=== PATIENT | female | born 1945 | race Caucasian/White ===

== ENCOUNTER 2017-06-21 13:11 | Emergency (ER) | payer MEDICAID, OTHER ==
[~2017-06-21] VITALS: Ht 165.1 cm; Wt 81.6 kg
[~2017-06-21 13:11] MED LIST: LACT-209 GT; LACT10SO GT; RANI150T12 GT
--- NOTE | 2017-06-21 13:15 | NUR ---
[facility] FOR GT REPLACEMENT. RR IS EVEN AND UNLABORED WITH NAD NOTED. SKIN IS WARM AND DRY. AWAITING MD FOR EVAL.
[2017-06-21] MEDS ORDERED: DIATR MEGLU/DIATRIZOATE SODIUM 30 ML BOTTLE (GASTROGRAPHIN) ONE (13:39)
--- NOTE | 2017-06-21 14:00 | NUR ---
DONELL AT BS.
[2017-06-21 16:50] VITALS: BP 106/51
--- NOTE | 2017-06-21 16:52 | NUR ---
Patient discharged to home VIA [facility] in stable condition. Written and verbal after care instructions given. Patient verbalizes understanding of instruction.
== END 2017-06-21 16:53 ==
LOC: ER 13:16
DX: K94.03 Colostomy malfunction (principal); E11.9 Type 2 diabetes mellitus without complications; F03.90 Unspecified dementia, unspecified severity, without behavioral disturbance, psychotic disturbance, mood disturbance, and anxiety; I10 Essential (primary) hypertension; K21.9 Gastro-esophageal reflux disease without esophagitis; K74.60 Unspecified cirrhosis of liver; F17.200 Nicotine dependence, unspecified, uncomplicated
CPT/HCPCS: 74018; A4606; Q9963; Z7610

== ENCOUNTER 2017-07-23 18:39 | Emergency (ER) | payer OTHER ==
[~2017-07-23] VITALS: Ht 165.1 cm; Wt 68.0 kg
[~2017-07-23 18:39] MED LIST changes: -RANI150T12 GT; +RANI150T43 GT
[2017-07-23] MEDS ORDERED: DIATR MEGLU/DIATRIZOATE SODIUM 30 ML BOTTLE (GASTROGRAPHIN) ONE (19:39)
[2017-07-23 20:57] VITALS: BP 141/74
[2017-07-24] MEDS ORDERED: RANI150T43 GT (07:39)
[2017-07-24] MEDS ORDERED: AMIN30LI4 GT (07:39)
[2017-07-24] MEDS ORDERED: LACT-209 GT (07:39)
[2017-07-24] MEDS ORDERED: CHOL100044 GT (07:39)
[2017-07-27] MEDS ORDERED: CEPH-569 PO (09:56)
== END 2017-07-23 20:57 ==
LOC: ER 18:41
DX: K94.23 Gastrostomy malfunction (principal); I10 Essential (primary) hypertension; K21.9 Gastro-esophageal reflux disease without esophagitis; E11.9 Type 2 diabetes mellitus without complications; F03.90 Unspecified dementia, unspecified severity, without behavioral disturbance, psychotic disturbance, mood disturbance, and anxiety; K74.60 Unspecified cirrhosis of liver; F17.200 Nicotine dependence, unspecified, uncomplicated; Z86.73 Personal history of transient ischemic attack (TIA), and cerebral infarction without residual deficits
CPT/HCPCS: 74018; A4606; Q9963; Z7610

== ENCOUNTER 2017-07-24 07:00 | Inpatient (IN) | payer OTHER ==
[~2017-07-24] VITALS: Ht 160 cm; Wt 68.5 kg
--- NOTE | 2017-07-24 07:00 | NUR ---
TOD FROM [facility] FOR G TUBE REPLACEMENT, S/P PATIENT PULLING OUT GTUBE AT APPROX. 0430. CLEMONS IN PLACE. A/OX 1, BREATHING EVEN AND UNLABORED. NO SOB, NAD, VITALS STABLE. SAFETY AND COMFORT MEASURES IN PLACE. AWAITING MD ORDERS.
[2017-07-24] MEDS ORDERED: WATER FOR INJECTION,STERILE 0 ML ONE (07:06)
--- NOTE | 2017-07-24 07:10 | NUR ---
DR. LADD ATTEMPTED TO REPLACE G-TUBE WITH NO SUCCESS, STOMA HAS CLOSED UP. WILL F/U WITH GI.
[2017-07-24] MEDS ORDERED: IV NS 0.9% 1,000 ML IV ONE (07:30)
[2017-07-24] MEDS ORDERED: CHOL100044 GT (07:39)
[2017-07-24] MEDS ORDERED: RANI150T43 GT (07:39)
[2017-07-24] MEDS ORDERED: AMIN30LI4 GT (07:39)
[2017-07-24] MEDS ORDERED: LACT-209 GT (07:39)
[2017-07-24 07:42] LABS: BASOPHILS % (AUTO) 0.3 % (0.0-2.0); EOSINOPHILS % (AUTO) 3.2 % (0.0-6.0); HEMATOCRIT 45 % (33-45); HEMOGLOBIN 15.8 g/dL (11.5-14.8); LYMPHOCYTES # (AUTO) 1.5 /CMM (0.8-4.8); LYMPHOCYTES % (AUTO) 29.4 % (20.0-44.0); MEAN CORPUSCULAR HGB CONC 35 g/dl (31.0-36.0); MEAN CORPUSCULAR VOLUME 97 fL (82-100); MONOCYTES # (AUTO) 0.4 /CMM (0.1-1.30); MONOCYTES % (AUTO) 7.2 % (2.0-12.0); NEUTROPHILS % (AUTO) 59.9 % (43.0-81.0); PLATELET COUNT (AUTO) 119 /CMM (150-450); RDW COEFFICIENT OF VARIATION 14.1 (11.5-15.0); RED BLOOD CELL COUNT(AUTO) 4.69 MIL/uL (4.0-5.2); WHITE BLOOD COUNT (AUTO) 5.1 K/uL (4.3-11.0)
[2017-07-24 07:58] LABS: INR 1.06 (0.87-1.13)
[2017-07-24 08:06] LABS: CARBON DIOXIDE 28 mmol/L (21-32); CHLORIDE 111 mmol/L (98-107); CREATININE 0.8 mg/dL (0.6-1.3); GLUCOSE 111 mg/dL (74-106); POTASSIUM 4.5 mmol/L (3.5-5.1); SODIUM SERUM 147 mmol/L (136-145); UREA NITROGEN, BLOOD 32 mg/dL (7-18)
--- NOTE | 2017-07-24 08:23 | NUR ---
report given to aram matias for mason upon admission.
[2017-07-24] MEDS ORDERED: Z GUARD REMEDY 2 OZ OINT TP PRN (08:30)
[2017-07-24] MEDS ORDERED: MAG HYDROX/AL HYDROX/SIMETH 30 ML UDC PO PRN (08:30)
[2017-07-24] MEDS ORDERED: MAGNESIUM HYDROXIDE 30 ML UDC PO PRN (08:30)
[2017-07-24] MEDS ORDERED: ONDANSETRON HCL/PF 4 MG/2 ML VIAL IVP PRN (08:30)
[2017-07-24] MEDS ORDERED: ACETAMINOPHEN 325 MG TABLET PO PRN (08:30)
[2017-07-24] MEDS ORDERED: HYDROCODONE/APAP 5/325MG 1 EACH TABLET PO PRN (08:30)
[2017-07-24 09:00] VITALS: BP 128/75
[2017-07-24] MEDS: PANTOPRAZOLE 40 MG VIAL IV SCH (09:00)
--- NOTE | 2017-07-24 09:30 | NUR ---
COMPUTER OPERATIONS TECHNICIAN NOTE RECEIVED PT. PT IS STABLE AND RESTING IN BED. NO S/S OF SOB OR RESP DISTRESS. PT IS NON VERBAL, HOWEVER IS ABLE TO FOLLOW SIMPLE COMMANDS. BED BOUND, PT DENIES PAIN AT THIS TIME. SKIN ASSESSMENT PHOTOS TAKEN AND PLACED IN CHART. SAFETY MEASURES IN PLACE, CALL LIGHT WITHIN REACH. WILL CONTINUE TO MONITOR.
[2017-07-24] MEDS ORDERED: JEVITY 1.2 CAL 1,000 ML BOTTLE GT SCH (10:00)
[2017-07-24] MEDS: LACTULOSE 10 G/15 ML UDC (PYXIS) GT SCH (10:30)
[2017-07-24] MEDS: CHOLECALCIFEROL 1,000 UNIT TABLET (VIT D3) GT SCH ×2 (13:00→17:00)
[2017-07-24 15:21] LABS: ALANINE AMINOTRANSFERASE 46 U/L (12-78); ALBUMIN 2.9 g/dL (3.4-5.0); ALKALINE PHOSPHATASE 122 U/L (46-116); ASPARTATE AMINOTRANSFERASE 43 U/L (15-37); BILIRUBIN,TOTAL 0.8 mg/dL (0.2-1.0); CALCIUM, SERUM 8.8 mg/dL (8.5-10.1); CARBON DIOXIDE 26 mmol/L (21-32); CHLORIDE 113 mmol/L (98-107); CREATININE 0.7 mg/dL (0.6-1.3); GLUCOSE 100 mg/dL (74-106); POTASSIUM 4.2 mmol/L (3.5-5.1); SODIUM SERUM 146 mmol/L (136-145); TOTAL PROTEIN, SERUM 8.1 g/dL (6.4-8.2); UREA NITROGEN, BLOOD 29 mg/dL (7-18)
[2017-07-24 16:00] VITALS: BP 118/67
[2017-07-24] MEDS: PROSOURCE / PROSTAT (PYXIS) 30 ML UDC GT SCH (17:00)
[2017-07-24] MEDS: IV D5/0.45 NACL 1,000 ML IV PRN (17:56)
--- NOTE | 2017-07-24 18:59 | NUR ---
RN CLOSING NOTE PT IN BED RESTING. NO S/S OF RESP DISTRESS OR SOB. PT DOES NOT APPEAR TO BE IN PAIN. NGT INSERTED, 16 FR TO BE USED FOR FIBERSOURCE FEEDING. STAT CXR PERFORMED, PLACEMENT CONFIRMED. SAFETY MEASURES IN PLACE, CALL LIGHT IN REACH. WILL ENDORSE TO COMPUTER SYSTEMS TECHNICIAN FOR [place].
--- NOTE | 2017-07-24 19:35 | NUR ---
MS RN OPENING NOTES RECEIVED PT LAYING IN BED WITH HOB ELEVATED. PT NOTED WITH SPONTANEOUS EYE OPENING, BUT NONVERBAL. RESPIRATIONS ARE EVEN AND UNLABORED, NOT IN ANY ACUTE DISTRESS NOTED. NO FACIAL GRIMACING NOTED. IV SITE INTACT, NO INFILTRATION NOTED. DRESSING KEPT CLEAN AND DRY. NGT IN PLACE, FREE OF KINKS. HOB KEPT ELEVATED. SAFETY MEASURES ARE IN PLACE. WILL CONTINUE TO MONITOR THROUGHOUT SHIFT FOR CONTINUITY OF CARE.
[2017-07-24 20:00] VITALS: BP 146/56
[2017-07-24 20:05] VITALS: BP 146/56
[2017-07-24] MEDS ORDERED: INSULIN REGULAR, HUMAN 100 UNIT/ML 3 ML VIAL SQ PRN (21:00)
[2017-07-24] MEDS ORDERED: DEXTROSE 50%-WATER 50 ML DISP.SYRIN IV PRN (21:00)
[2017-07-24] MEDS: BLOOD SUGAR DIAGNOSTIC 1 EACH STRIP IN SCH (21:59)
[2017-07-24] MEDS: FIBERSOURCE HN 1,000 ML BOTTLE GT PRN (23:15)
--- NOTE | 2017-07-25 06:24 | NUR ---
MS RN CLOSING NOTE ALL DUE MEDS GIVEN, NEEDS MET AND RENDERED. AWAKE AND RESPONSIVE. PT IS HOWEVER NONVERBAL BUT ABLE TO NOD HEAD YES AND NO. RESPIRATIONS ARE EVEN AND UNLABORED, NOT IN ANY ACUTE DISTRESS NOTED. DENIES ANY PAIN, SOB AT THIS TIME. IV SITE INTACT, NO INFILTRATION NOTED. DRESSING KEPT CLEAN AND DRY. NGT IN PLACE, TOLERATING TUBE FEEDING WELL W/ NO RESIDUAL. SAFETY MEASURES ARE IN PLACE. REMINDED PT TO USE CALL LIGHT WHEN ASSISTANCE IS NEEDED, CALL LIGHT IS LEFT WITHIN REACH. WILL ENDORSE TO NEXT SHIFT FOR CONTINUITY OF CARE.
[2017-07-25] MEDS: IV D5/0.45 NACL 1,000 ML IV PRN ×2 (06:27→20:07)
[2017-07-25] MEDS: BLOOD SUGAR DIAGNOSTIC 1 EACH STRIP IN SCH ×3 (06:30→16:39)
[2017-07-25 07:18] LABS: BASOPHILS % (AUTO) 0.1 % (0.0-2.0); EOSINOPHILS % (AUTO) 1.9 % (0.0-6.0); HEMATOCRIT 40 % (33-45); HEMOGLOBIN 13.9 g/dL (11.5-14.8); LYMPHOCYTES # (AUTO) 1.2 /CMM (0.8-4.8); LYMPHOCYTES % (AUTO) 22.4 % (20.0-44.0); MEAN CORPUSCULAR HGB CONC 35 g/dl (31.0-36.0); MEAN CORPUSCULAR VOLUME 96 fL (82-100); MONOCYTES # (AUTO) 0.5 /CMM (0.1-1.30); MONOCYTES % (AUTO) 9.6 % (2.0-12.0); NEUTROPHILS # (AUTO) 3.4 /CMM (1.8-8.9); PLATELET COUNT (AUTO) 105 /CMM (150-450); RDW COEFFICIENT OF VARIATION 13.9 (11.5-15.0); RED BLOOD CELL COUNT(AUTO) 4.18 MIL/uL (4.0-5.2); WHITE BLOOD COUNT (AUTO) 5.2 K/uL (4.3-11.0)
[2017-07-25 07:27] LABS: ALANINE AMINOTRANSFERASE 38 U/L (12-78); ALBUMIN 2.7 g/dL (3.4-5.0); ALKALINE PHOSPHATASE 112 U/L (46-116); ASPARTATE AMINOTRANSFERASE 41 U/L (15-37); BILIRUBIN,TOTAL 0.8 mg/dL (0.2-1.0); CALCIUM, SERUM 8.4 mg/dL (8.5-10.1); CARBON DIOXIDE 25 mmol/L (21-32); CHLORIDE 111 mmol/L (98-107); CREATININE 0.6 mg/dL (0.6-1.3); GLUCOSE 131 mg/dL (74-106); MAGNESIUM 2.2 mg/dL (1.8-2.4); PHOSPHORUS 2.4 mg/dL (2.5-4.9); POTASSIUM 3.7 mmol/L (3.5-5.1); SODIUM SERUM 143 mmol/L (136-145); TOTAL PROTEIN, SERUM 7.6 g/dL (6.4-8.2); UREA NITROGEN, BLOOD 23 mg/dL (7-18)
--- NOTE | 2017-07-25 07:52 | NUR ---
MS/RN OPENING NOTE PATIENT IN BED IN STABLE CONDITION. A/O X 1, NON VERBAL. NO SIGNS OF ACUTE DISTRESS. NO COMPLAIN OF PAIN OR DISCOMFORT. ON NG TUBE FEEDING. TOLERATING WELL, HOB ELEVATED FOR ASPIRATION PRECAUTION. ON BILATERAL SOFT WRIST RESTRAINTS SECONDARY TO PULLING OUT NG TUBE. ALL NEEDS ATTENDED TO. CALL LIGHT WITHIN REACH. WILL CONTINUE TO MONITOR TO ENSURE SAFETY.
[2017-07-25 08:00] VITALS: BP 103/69
[2017-07-25] MEDS ORDERED: FAMOTIDINE (20 MG) 20 MG TABLET PO SCH (09:00)
[2017-07-25] MEDS: PROSOURCE / PROSTAT (PYXIS) 30 ML UDC GT SCH ×2 (09:10→16:39)
[2017-07-25] MEDS: PANTOPRAZOLE 40 MG VIAL IV SCH (09:10)
[2017-07-25] MEDS: LACTULOSE 10 G/15 ML UDC (PYXIS) GT SCH (09:10)
[2017-07-25] MEDS: CHOLECALCIFEROL 1,000 UNIT TABLET (VIT D3) GT SCH ×3 (09:10→16:40)
[2017-07-25] MEDS ORDERED: NEUTRA PHOS 1 POWD.PACKET NG ONE (11:00)
[2017-07-25 16:00] VITALS: BP 132/60
--- NOTE | 2017-07-25 18:50 | NUR ---
MS/RN CONSENT AND CLOSING NOTE PATIENT IN BED IN STABLE CONDITION. A/O X 1, NON VERBAL, ANSWERS SIMPLE YES OR NO QUESTIONS WITH HEAD NODDING. NO SIGNS OF ACUTE DISTRESS. NO COMPLAIN OF PAIN OR DISCOMFORT. ON NG TUBE FEEDING, TOLERATING WELL. CONSENT FOR EGD WITH PEG TUBE PLACEMENT NEEDED, CALLED RESPONSIBLE [employer]ICAN ON FACE SHEET CONTACT INFO TWICE AND LEFT MESSAGE, AWAITING FOR CALL BACK. ALL NEEDS ATTENDED TO. CALL LIGHT WITHIN REACH. WILL ENDORSE TO NEXT SHIFT FOR CONTINUITY OF CARE.
--- NOTE | 2017-07-25 18:53 | NUR ---
Patient resides at [facility] [phone]. She requires mod-max assist with adl's. Confined to chair or bed most of the time. Primary source of support are SNF staff and family. Current plan is to dc back to SNF once d/c. Addendum: 07/25/17 at 1854 by TREVON HOLLAND RN Amended: Links added.
--- NOTE | 2017-07-25 19:35 | NUR ---
MSRN AWAKE, NONVERBAL OF THIS TIME. NGT FEEDINGS RESUMED, WILL BE NPO TONIGHT AFTER MIDNIGHT. NO RESPIRATORY DISTRESS, HOB ON 30 DEGREES TO PREVENT ASPIRATION. V/S STABE, CLOSELY WATCHED. PT ON HARSH SOFT WRIST RESTRAINTS TO PREVENT PULIING LINES AND NGT.
[2017-07-25 20:00] VITALS: BP 115/58
[2017-07-25 21:06] VITALS: BP 115/58
[2017-07-26] MEDS: BLOOD SUGAR DIAGNOSTIC 1 EACH STRIP IN SCH ×5 (00:30→21:08)
--- NOTE | 2017-07-26 00:35 | NUR ---
MSMALDONADO IN [facility] VOIDED FREELY. REMAINS COOPERATIVE. Addendum: 07/26/17 at 0210 by ANNALISE DIALLO RN DISREGARD ABVE DOCUMENTATION, WRONG PATIENT
--- NOTE | 2017-07-26 02:06 | NUR ---
MICAELA RECEIVED CALL FROM DAUGHTER. PATIENT SLEEPING OF THIS TIME APPEARS COMFORTABLE. Addendum: 07/26/17 at 0211 by ANNALISE DIALLO RN DISREGARD ABOVE DOCUMENTATION, WRONG PATIENT.
--- NOTE | 2017-07-26 02:11 | NUR ---
MICAELA BS 146 AT MIDNIGHT. FEEDINGS DISCONTINUE. KEPT NPO.
--- NOTE | 2017-07-26 06:19 | NUR ---
MSRN EKG DONE. NGT CLAMPED. BS 139. REMAINS NPO.
--- NOTE | 2017-07-26 07:10 | NUR ---
MS/RN OPENING NOTE PATIENT IS RECEIVED IN BED AWAKE. ALERT AND ORIENTED TO SELF. PATIENT MAINLY NON-VERBAL EXCEPT SATING 1-2 SHORT WORD RARELY. PATIENT UNABLE TO MAKE NEEDS KNOWN. RESPIRATION REGULAR AND UNLABORED. NO MANIFESTATION OF SOB, PAIN. PATIENT IN NO APPARENT DISTRESS. NG FEEDING OFF. HOB ELEVATED. BILATERAL SOFT WRIST RESTRAINTS ON SECONDARY TO PULLING OUT NG TUBE. RIGHT WRIST G 20 PATENT AND IV FLUIDS INFUSING WITH NO S/S INFILTRATION. BED LOW AND LOCKED. SIDE RAILS UP X3. CALL LIGHT WITHIN REACH. WILL CONTINUE TO MONITOR.
[2017-07-26 07:51] LABS: BASOPHILS % (AUTO) 0.5 % (0.0-2.0); EOSINOPHILS % (AUTO) 1.7 % (0.0-6.0); HEMATOCRIT 39 % (33-45); HEMOGLOBIN 13.3 g/dL (11.5-14.8); MEAN CORPUSCULAR HGB CONC 34 g/dl (31.0-36.0); MEAN CORPUSCULAR VOLUME 97 fL (82-100); MONOCYTES # (AUTO) 0.4 /CMM (0.1-1.30); MONOCYTES % (AUTO) 7.1 % (2.0-12.0); NEUTROPHILS # (AUTO) 4.7 /CMM (1.8-8.9); NEUTROPHILS % (AUTO) 73.7 % (43.0-81.0); PLATELET COUNT (AUTO) 80 /CMM (150-450); RDW COEFFICIENT OF VARIATION 13.1 (11.5-15.0); RED BLOOD CELL COUNT(AUTO) 4.01 MIL/uL (4.0-5.2); WHITE BLOOD COUNT (AUTO) 6.2 K/uL (4.3-11.0)
--- NOTE | 2017-07-26 08:00 | NUR ---
MS/RN NOTE BLOOD SUGAR 140. INSULIN COVERAGE NOT GIVEN DUE TO PATIENT REMAINING NPO/NO FEEDING. PATIENT IN STABLE CONDITION.
[2017-07-26 08:41] LABS: CALCIUM, SERUM 7.7 mg/dL (8.5-10.1); CARBON DIOXIDE 25 mmol/L (21-32); CHLORIDE 104 mmol/L (98-107); CREATININE 0.6 mg/dL (0.6-1.3); GLUCOSE 125 mg/dL (74-106); MAGNESIUM 1.7 mg/dL (1.8-2.4); PHOSPHORUS 1.7 mg/dL (2.5-4.9); POTASSIUM 3.4 mmol/L (3.5-5.1); SODIUM SERUM 137 mmol/L (136-145); UREA NITROGEN, BLOOD 14 mg/dL (7-18)
[2017-07-26] MEDS: LACTULOSE 10 G/15 ML UDC (PYXIS) GT SCH (09:00)
[2017-07-26] MEDS: CHOLECALCIFEROL 1,000 UNIT TABLET (VIT D3) GT SCH ×3 (09:00→16:48)
[2017-07-26] MEDS: PROSOURCE / PROSTAT (PYXIS) 30 ML UDC GT SCH ×2 (09:00→16:46)
[2017-07-26] MEDS: PANTOPRAZOLE 40 MG VIAL IV SCH (09:34)
[2017-07-26] MEDS: IV D5/0.45 NACL 1,000 ML IV PRN (09:38)
[2017-07-26] MEDS ORDERED: Sodium Phosphate 7.5 MMOL in IV D5W 100 ML IV ONE (10:00)
[2017-07-26] MEDS ORDERED: K PHOS NEUTRAL 250 MG TABLET PO ONE (10:00)
[2017-07-26 10:36] LABS: EOSINOPHILS % (MANUAL) 1 % (0-4); LYMPHOCYTES % (MANUAL) 18 % (16-48); MONOCYTES % (MANUAL) 6 % (0-11.0); NEUTROPHILS % (MANUAL) 75 (42-76)
[2017-07-26] MEDS: POTASSIUM CL. PREMIX PERIPHER. 50 ML IV SCH ×2 (11:00→11:36)
--- NOTE | 2017-07-26 12:50 | NUR ---
MS/RN NOTE PATIENT NOTED WITH TEMP 100.3. TYLENOL 650 MG RECTALLY GIVEN PER ORDER. COOLING MEASURES TAKEN.
[2017-07-26] MEDS ORDERED: ACETAMINOPHEN 650 MG/SUPP.RECT RC PRN (13:00)
[2017-07-26] MEDS: Magnesium 1GM/D5W 100ML PREMIX 100 ML IV SCH ×2 (13:18→14:45)
[2017-07-26] MEDS ORDERED: ANESTHESIA TRAY IN PYXIS 1 EA TRAY MC ONE (13:28)
--- NOTE | 2017-07-26 13:28 | NUR ---
MS/RN NOTE PATIENT ALERT AND ORIENTED TO SELF. RESPIRATION REGULAR AND UNLABORED. NO S/S DISTRESS NOTED. OR NURSE IS MADE AWARE OF TEMP 100.3 AND PRN TYLENOL GIVEN. VITAL SIGNS ARE CHECK. PATIENT IS TAKEN TO OR ON A GURNEY AND IN STABLE CONDITION.
[2017-07-26] MEDS ORDERED: CEFAZOLIN 1 GM ONE (14:04)
[2017-07-26 14:35] VITALS: BP 122/43
--- NOTE | 2017-07-26 14:35 | NUR ---
MS/RN NOTE PATIENT IS BACK FROM OR ON A GURNEY. RESPIRATION REGULAR AND UNLABORED. O2 SATURATION IN ROOM AIR AT 96%. PATIENT WITH NO S/S DISTRESS. VITAL SIGNS WNL. STOMA SITE WITH NO BLEEDING AND NO DISCHARGE. BED LOW AND LOCKED. SIDE RAILS UP X3. WILL CONTINUE TO MONITOR.
[2017-07-26 14:45] VITALS: BP 119/60
[2017-07-26 15:15] VITALS: BP 121/59
--- NOTE | 2017-07-26 16:19 | NUR ---
MS/RN NOTE RECEIVED NEW ORDERS FORM SANTOSH TORRES). THE ORDERS READ BACK, VERIFIED, NOTED AND CARRIED OUT.
[2017-07-26] MEDS: CHLORHEXIDINE GLUCONATE 15 ML UDC MM SCH (16:46)
[2017-07-26 18:19] LABS: APPEARANCE,URINE CLEAR (CLEAR); BILIRUBIN,URINE NEGATIVE (NEGATIVE); BLOOD, URINE 2+ Ery/uL (NEGATIVE); COLOR,URINE YELLOW (YELLOW); KETONES,URINE NEGATIVE (NEGATIVE); LEUKOCYTE ESTERASE ,URINE TRACE (NEGATIVE); NITRITE, URINE POSITIVE (NEGATIVE); PROTEIN,URINE NEGATIVE (NEGATIVE); UGLUCOSE NEGATIVE (NEGATIVE); UROBILINOGEN,URINE 0.2 EU/dL (0.2)
[2017-07-26 18:28] LABS: BACTERIA,URINE 1+ /HPF (None Seen)
--- NOTE | 2017-07-26 18:52 | NUR ---
MS/RN CLOSING NOTE PATIENT ALERT AND ORIENTED TO SELF. PATIENT VERBAL ONLY 1-2 OCCASIONAL. RESPIRATION REGULAR AND UNLABORED. NO S/S DISTRESS NOTED. RIGHT WRIST G 20 PATENT AND IV FLUID INFUSING WITH NO S/S INFILTRATION. BED LOW AND LOCKED. SIDE RAILS UP X3. CALL LIGHT WITHIN REACH. WILL ENDORSE TO INDUSTRIAL GAS SERVICER SUPERVISOR.
--- NOTE | 2017-07-26 19:33 | NUR ---
MS RN OPENING NOTES RECEIVED PT SITTING UPRIGHT IN BED. AWAKE AND RESPONSIVE. PT ABLE TO NOD HEAD YES AND NO. RESPIRATIONS ARE EVEN AND UNLABORED, NOT IN ANY ACUTE DISTRESS NOTED. NO FACIAL GRIMACING OR MOANING. IV SITE INTACT, NO INFILTRATION NOTED. DRESSING KEPT CLEAN AND DRY. SAFETY MEASURES ARE IN PLACE. SITTER AT BEDSIDE. WILL CONTINUE TO MONITOR THROUGHOUT SHIFT.
[2017-07-26 20:00] VITALS: BP_SYST 101; BP_SYST 159; BP_DIAS 68; BP_DIAS 76
[2017-07-26] MEDS ORDERED: MAGNESIUM OXIDE 400 MG TABLET PO ONE (22:00)
--- NOTE | 2017-07-26 23:01 | NUR ---
MS RN NOTES RELAYED UA RESULTS TO DR. MCBRIDE W/ NO NEW ORDERS AT THIS TIME.
[2017-07-27] MEDS: FIBERSOURCE HN 1,000 ML BOTTLE GT PRN (00:02)
--- NOTE | 2017-07-27 00:10 | NUR ---
MS RN NOTES TUBE FEEDING STARTED, FIBERSOURCE @55ML/HR. AUSCULTATED FOR PLACEMENT WITH ZERO RESIDUAL. HOB KEPT ELEVATED. WILL CONTINUE TO MONITOR THROUGHOUT SHIFT.
[2017-07-27] MEDS: IV D5/0.45 NACL 1,000 ML IV PRN (01:50)
[2017-07-27] MEDS: BLOOD SUGAR DIAGNOSTIC 1 EACH STRIP IN SCH ×2 (06:30→12:22)
--- NOTE | 2017-07-27 06:36 | NUR ---
MS RN CLOSING NOTES NEEDS MET AND ANTICIPATED. AWAKE AND RESPONSIVE. PT IS NOTED TO BE NONVERBAL, HOWEVER PT WAS ABLE TO SAY 1-2 WORDS AND ABLE TO NOD YES/NO. RESPIRATIONS ARE EVEN AND UNLABORED, NOT IN ANY ACUTE DISTRESS NOTED. NO C/O SOB, N/V. IV ACCESS INTACT, NO INFILTRATION NOTED. DRESSING KEPT CLEAN AND DRY. TUBE FEEDING CONTINUED W/ NO RESIDUALS NOTED, TOLERATING FEEDING. SAFETY MEASURES ARE IN PLACE. BED IS IN ITS LOW AND LOCKED POSITION. SITTER AT BEDSIDE. WILL ENDORSE TO NEXT SHIFT FOR CONTINUITY OF CARE.
--- NOTE | 2017-07-27 07:39 | NUR ---
MS RN OPENING NOTES RECEIVED PT IN BED AWAKE, A/O X1-2 IN NO ACUTE SIGNS OF DISTRESS. SITTER AT BEDSIDE. PT GESTURED THAT SHE'S OK AND NOT IN PAIN WHEN ASKED. ON ROOM AIR, BREATHING IS EVEN AND UNLABORED. IV ACCESS ON RIGHT WRIST PATENT AND INTACT, IVF OF D5 1/2 NS @ 75ML/HR INFUSING WELL, NO REDNESS OR SIGNS OF INFILTRATION NOTED. G-TUBE IN PLACE WITH FEEDING OF FIBERSOURCE AT 55 ML/HR IN PROGRESS AND TOLERATING WELL. ASPIRATION PRECAUTIONS MAINTAINED. HOB ELEVATED. BED IN LOW/LOCKED POSITION WITH SIDE RAILS UP X2. CALL LIGHT WITHIN REACH. WILL CONTINUE TO MONITOR.
[2017-07-27 08:00] VITALS: BP 118/58
[2017-07-27 08:06] LABS: BASOPHILS % (AUTO) 0.2 % (0.0-2.0); EOSINOPHILS % (AUTO) 4.1 % (0.0-6.0); HEMATOCRIT 37 % (33-45); HEMOGLOBIN 12.8 g/dL (11.5-14.8); LYMPHOCYTES % (AUTO) 21.5 % (20.0-44.0); MEAN CORPUSCULAR HGB CONC 35 g/dl (31.0-36.0); MEAN CORPUSCULAR VOLUME 97 fL (82-100); MONOCYTES # (AUTO) 0.4 /CMM (0.1-1.30); MONOCYTES % (AUTO) 7.6 % (2.0-12.0); NEUTROPHILS # (AUTO) 3.1 /CMM (1.8-8.9); NEUTROPHILS % (AUTO) 66.6 % (43.0-81.0); PLATELET COUNT (AUTO) 74 /CMM (150-450); RDW COEFFICIENT OF VARIATION 12.7 (11.5-15.0); RED BLOOD CELL COUNT(AUTO) 3.81 MIL/uL (4.0-5.2); WHITE BLOOD COUNT (AUTO) 4.7 K/uL (4.3-11.0)
[2017-07-27 08:15] LABS: CALCIUM, SERUM 7.7 mg/dL (8.5-10.1); CARBON DIOXIDE 24 mmol/L (21-32); CHLORIDE 105 mmol/L (98-107); CREATININE 0.6 mg/dL (0.6-1.3); GLUCOSE 151 mg/dL (74-106); MAGNESIUM 2.4 mg/dL (1.8-2.4); PHOSPHORUS 1.8 mg/dL (2.5-4.9); POTASSIUM 3.4 mmol/L (3.5-5.1); SODIUM SERUM 137 mmol/L (136-145); UREA NITROGEN, BLOOD 8 mg/dL (7-18)
[2017-07-27] MEDS: CHLORHEXIDINE GLUCONATE 15 ML UDC MM SCH (08:29)
[2017-07-27] MEDS: PANTOPRAZOLE 40 MG VIAL IV SCH (08:29)
[2017-07-27] MEDS: CHOLECALCIFEROL 1,000 UNIT TABLET (VIT D3) GT SCH ×2 (08:30→12:22)
[2017-07-27] MEDS: LACTULOSE 10 G/15 ML UDC (PYXIS) GT SCH (08:30)
[2017-07-27] MEDS: PROSOURCE / PROSTAT (PYXIS) 30 ML UDC GT SCH (08:31)
[2017-07-27] MEDS ORDERED: CEPH-569 PO (09:56)
[2017-07-27] MEDS ORDERED: POTASSIUM CHLORIDE 20 MEQ TAB.PRT.SR PO ONE (10:00)
[2017-07-27] MEDS ORDERED: K PHOS NEUTRAL 250 MG TABLET PO ONE (11:30)
[2017-07-27 11:58] LABS: EOSINOPHILS % (MANUAL) 5 % (0-4); LYMPHOCYTES % (MANUAL) 18 % (16-48); MONOCYTES % (MANUAL) 6 % (0-11.0); NEUTROPHILS % (MANUAL) 71 (42-76)
--- NOTE | 2017-07-27 12:13 | NUR ---
RN NOTES PT FOR TRANSFERRED BACK TO [facility] THIS AFTERNOON, CALLED AND REPORT GIVEN TO MALDONADO HESTER. SAME CONTACTED BROTHER NICOLE AND SISTER NERISSA BUT UN-ABLE TO REACH THEM. CALLED LORAINE (SON OF NERISSA) AND INFORMED THAT PT WILL BE TRANSFERRED BACK TO [facility] TODAY. LORAINE SAID THAT HE WILL TELL RELAY MESSAGE TO HIS MOM.
--- NOTE | 2017-07-27 14:08 | NUR ---
RN DISCHARGED NOTES PT DISCHARGED TO [facility] IN STABLE CONDITION. A/O X1-2. CALMED BUT CONFUSED, UN-ABLE TO VERBALIZED UNDERSTANDING WHEN DISCHARGED INSTRUCTION WAS GIVEN. ON ROOM AIR, TOLERATED WITH NO ACUTE SIGNS OF DISTRESS NOTED DURING DISCHARGE. V/S CHECKED AND RECORDED. PHOTOS OF SKIN WERE TAKEN THIS MORNING. IV ACCESS REMOVED AND COVERED SITE WITH GAUZE AND TAPE. PATIENT HAS NO BELONGINGS, CHECKLIST SIGNED BY ME AND OTHER NURSE. PEG-TUBE FR#[address] AND SECURED WITH ABDOMINAL BINDER. PT LEFT UNIT VIA GURNEY AT 1345 ACCOMPANIED BY 2 EMT'S. MD AND CHARGE NURSE AWARE OF DISCHARGE.
== END 2017-07-27 13:45 | DRG 254 ==
LOC: ER 07:03 → MED 08:18
PROVIDERS: ADMIT Registered Nurse; ATTEND Registered Nurse
PROC: 0DH63UZ Insertion of Feeding Device into Stomach, Percutaneous Approach (ICD-10-PCS; principal; 2017-07-26 13:35)
DX: Z43.1 Encounter for attention to gastrostomy (principal); E87.0 Hyperosmolality and hypernatremia; R53.2 Functional quadriplegia; R13.10 Dysphagia, unspecified; E83.42 Hypomagnesemia; E83.39 Other disorders of phosphorus metabolism; E86.0 Dehydration; K74.60 Unspecified cirrhosis of liver; F03.90 Unspecified dementia, unspecified severity, without behavioral disturbance, psychotic disturbance, mood disturbance, and anxiety; N39.0 Urinary tract infection, site not specified; E87.6 Hypokalemia; K21.9 Gastro-esophageal reflux disease without esophagitis; Z86.73 Personal history of transient ischemic attack (TIA), and cerebral infarction without residual deficits; I10 Essential (primary) hypertension; E11.9 Type 2 diabetes mellitus without complications; K02.9 Dental caries, unspecified
CPT/HCPCS: 36415; 43235; 71045-TC; 80048-TC; 80053-TC; 81000-TC; 82962-TC; 83735-TC; 84100-TC; 85025-TC; 85730-TC; 86850-TC; 87081-TC; 87086-TC; A4606; A6402; A9563; C9113; J0690; J1815; J3475; J3480; J3490; J7030; J7060; Z7610